=== PATIENT | female | born 1935 | race Caucasian/White ===

== ENCOUNTER → 2016-06-16 | Outpatient (CLI) | payer MEDICARE, BC ==
--- NOTE | ~2016-06-16 | ECH ---
Transthoracic Echocardiography Report (TTE) Demographics Patient Name ANGIE DUTTON Date of Study 06/16/2016 Patient Number [id number] Visit Number [id number] Date of 1935 Room Number Accession Number [id number] Gender Female Age 80 year(s) Referring Dinah Jimenes [employer] Analyst Estrellita López [facility] Physician Physician Interpreting [employer] Physician Supervising Ordering Physician Dinah Jimenes MD, MD/P Nurse Stress Professor Of Graphic Design Conclusions Summary Technically adequate exam. The estimated left ventricular ejection fraction is 55%. Mild left ventricular hypertrophy. Diastolic assessment reveals Grade I diastolic dysfunction. The left atrium is moderately dilated by LA volume index measurement. There is no evidence of patent foramen ovale or atrial septal defect by color Doppler. Mild mitral regurgitation by color Doppler. The mitral regurgitation jet is posteriorly directed. No definitive mitral valve prolapse noted. Mild tricuspid regurgitation by color Doppler.Estimated pulmonary pressures within normal limits. Procedure Type of Study TTE procedure:Echo Complete SF. Procedure Date Date: 06/16/2016 Start: 08:38 AM Technical Quality: Adequate visualization Indications:PVCs and Fatigue. Appropriate Use Criteria: 9 Height: 61 inches Weight: 134 pounds BSA: 1.59 m Rhythm: Within normal limits HR: 85 bpm BP: 142/62 mmHg M-Mode/2D Measurements LV Diastolic Dimension: 4.82 cm LV Systolic Dimension: 3.93 cm LV Septum Diastolic: 1.12 cm LV PW Diastolic: 1.07 cm AO Root Dimension: 2.35 cm Cardiac Output: 4.52 l/min LA Dimension: 3.63 cm Cardiac Index: 2.84 l/min*m RV Diastolic Dimension: 3.07 cm LA volume index: 43 ml/m LVOT: 1.92 cm LVOT VTI: 18.37 cm RV Base: 3.3 cm LV Stroke volume: 53.16 ml RV Mid: 1.6 cm LV Stroke volume index: 33.43 ml/m RV Length: 6.9 cm Doppler Measurements AV Peak Velocity: 1.2 m/s MV Peak E-Wave: 0.66 m/s AV Peak Gradient: 5.76 mmHg MV Peak A-Wave: 1.12 m/s AV Mean Gradient: 3.28 mmHg MV E/A Ratio: 0.59 LVOT Peak Velocity: 0.78 m/s MV P1/2t: 55.3 msec AV Area (Continuity):1.98 cm MV Deceleration Time: 171.8 msec TR Velocity:2.57 m/s MV Area (PHT): 3.98 cm TR Gradient:26.42 mmHg PV Peak Velocity: 1 m/s Estimated RAP:5 mmHg PV Peak Gradient: 3.99 mmHg Estimated RVSP: 31 mmHg Estimated PASP: 31.42 mmHg RA Area: 12.86 cm Findings Left Ventricle The left ventricle is normal in size . Mild left ventricular hypertrophy. Diastolic assessment reveals Grade I diastolic dysfunction. Right Ventricle Normal right ventricle structure and function. Left Atrium The left atrium is moderately dilated by LA volume index measurement. There is no evidence of patent foramen ovale or atrial septal defect by color Doppler. Right Atrium Normal right atrial size. Mitral Valve Normal mitral valve structure and function. Mild mitral regurgitation by color Doppler. The mitral regurgitation jet is posteriorly directed . Mild thickening of the mitral valve leaflets. Aortic Valve The aortic valve is mildly sclerotic. Tricuspid Valve Normal tricuspid valve structure and function. Mild tricuspid regurgitation by color Doppler.Estimated pulmonary pressures within normal limits. Pulmonic Valve Normal pulmonic valve structure and function. Pericardial Effusion No evidence of pericardial effusion. Miscellaneous Visualized portions of the aortic root and ascending aorta appear normal in size. Pleural Effusion No evidence of pleural effusion. Contractility Score LV regional wall motion:(0-Non visualized 1-Normal 2-Hypokinesis 3-Akinesis 4-Dyskinesis 5-Aneurysm) Signature
== END | disposition home or self-care (01) ==
LOC: CARD 07:49 → RAD.S 08:00
DX: D50.9 Iron deficiency anemia, unspecified (principal); R53.83 Other fatigue; R91.8 Other nonspecific abnormal finding of lung field; K57.30 Diverticulosis of large intestine without perforation or abscess without bleeding; K44.9 Diaphragmatic hernia without obstruction or gangrene